=== PATIENT | female | born 2000 | race Caucasian/White ===

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

== ENCOUNTER → 2018-03-31 | Outpatient (CLI) | payer OTHER ==
[2018-03-31 14:17] LABS: PLATELET COUNT, AUTOMATED 384 K/uL (150-450)
== END ==
LOC: LAB 13:44
PROVIDERS: ATTEND Nurse Practitioner Family
DX: K50.919 Crohn's disease, unspecified, with unspecified complications (principal)
CPT/HCPCS: 36415; 82040; 82247; 82310; 82374; 82435; 82565; 82947; 83540; 83550; 84075; 84132; 84155; 84295; 84450; 84460; 84520; 85025; 86140

== ENCOUNTER → 2018-07-20 | Outpatient (CLI) | payer OTHER ==
[2018-07-20 15:40] LABS: PLATELET COUNT, AUTOMATED 372 K/uL (150-450)
== END ==
LOC: LAB 15:02
PROVIDERS: ATTEND Nurse Practitioner Family
DX: K50.919 Crohn's disease, unspecified, with unspecified complications (principal)
CPT/HCPCS: 36415; 82040; 82247; 82310; 82374; 82435; 82565; 82947; 83540; 83550; 84075; 84132; 84155; 84295; 84450; 84460; 84520; 85025; 86140